=== PATIENT | male | born 1965 | race Caucasian/White ===

== ENCOUNTER 2021-06-16 09:16 | Day surgery (SDC) | payer MEDICARE ==
[~2021-06-16] VITALS: Ht 180.3 cm; Wt 141.3 kg
[2021-06-16] MEDS ORDERED: ROXICODONE 55 MG/TAB PO (10:05)
[2021-06-16] MEDS ORDERED: PRINIVIL20 MG PO (10:05)
[2021-06-16 10:27] VITALS: BP 158/92; PULSE 98; TEMP 98.6
--- NOTE | 2021-06-16 14:45 | NUR ---
Patient was assisted to the bathroom by GAIL Pettit prior to procedure.
[2021-06-16 15:55] VITALS: BP 158/97; PULSE 90; TEMP 97.5
--- NOTE | 2021-06-16 15:55 | NUR ---
Patient arrived on a cart from the endo suite. The patient is drowsy but oriented x3. Verbal report obtained. Vitals obtained. The patient requested a Sprite and warm muffin. His requested the same. Call underwood is on his lap within reach.
[2021-06-16 16:10] VITALS: BP 158/92; PULSE 97
--- NOTE | 2021-06-16 16:10 | NUR ---
Vitals obtained. Patient denies neusea. No vomiting. Call underwood remains on his lap. is present.
[2021-06-16 16:25] VITALS: BP 160/87; PULSE 86
--- NOTE | 2021-06-16 16:25 | NUR ---
Patient expressed desire to be discharged. Vitals obtained.
--- NOTE | 2021-06-16 16:40 | NUR ---
IV was discontinued due to impending discharge. Catheter tip intact. Pressure dressing applied. No swelling or redness noted. Discharge instructions and educational material was reviewed. The patient verbalized understanding of the information and signed the realted paperwork. Soft diet packet was included for the patient, per DR 24 hours. The patient verbalized understanding and can list a few foods that are safe for him to eat. He plans on having pudding, jello, and ice cream without chunks. The patient denied needing assistance changing.
--- NOTE | 2021-06-16 17:00 | NUR ---
The patient was escorted to the patient entrence by GAIL Pettit. The patient's has the DC packet and personal belongings. The patient was transferred into the care of his , who is present to drive. Via wheelchair.
== END 2021-06-16 17:00 | disposition home or self-care (01) ==
LOC: SDCO 09:16
DX: R19.5 Other fecal abnormalities (principal); I85.00 Esophageal varices without bleeding; K74.60 Unspecified cirrhosis of liver; K57.30 Diverticulosis of large intestine without perforation or abscess without bleeding; G89.29 Other chronic pain; D50.0 Iron deficiency anemia secondary to blood loss (chronic); B19.20 Unspecified viral hepatitis C without hepatic coma; I10 Essential (primary) hypertension; R18.8 Other ascites; F17.210 Nicotine dependence, cigarettes, uncomplicated; Z79.891 Long term (current) use of opiate analgesic; Z79.899 Other long term (current) drug therapy
CPT/HCPCS: J2704; J7030

== ENCOUNTER 2021-09-08 09:48 | Day surgery (SDC) | payer MEDICARE ==
[~2021-09-08] VITALS: Ht 180.3 cm; Wt 118.2 kg
[~2021-09-08 09:48] MED LIST: PRINIVIL20 MG PO; ROXICODONE 55 MG/TAB PO
[2021-09-08] MEDS ORDERED: TENORMIN 5050 MG/TAB PO (11:15)
[2021-09-08] MEDS ORDERED: LASIX 40MG TABL40 MG PO (11:16)
[2021-09-08] MEDS ORDERED: PROTONIX 40MG T40 MG PO (11:16)
[2021-09-08] MEDS ORDERED: ALDACTONE 100M100 MG PO (11:17)
[2021-09-08 11:55] LABS: CALCIUM 8.2 mg/dL (8.4-10.2); CREATININE, serum 0.98 mg/dL (0.72-1.25); POTASSIUM 3.8 mmol/L (3.5-4.5)
[2021-09-08 12:20] VITALS: BP 165/88; PULSE 75; TEMP 98
--- NOTE | 2021-09-08 12:20 | NUR ---
Pt arrived from procedure, drowsy but oriented. Pt settled by Jaylene REYNOLDS. Vitals obtained. Warm blanekt provided. Hot black coffee and a cold muffin provided per request. Call underwood is within reach on side table.
[2021-09-08 12:35] VITALS: BP 154/92; PULSE 72
--- NOTE | 2021-09-08 12:35 | NUR ---
Pt has finished his muffin and expressed desire to be discharged. Vitals obtained. Call underwood remains within reach.
[2021-09-08 12:50] VITALS: BP 147/94; PULSE 79
--- NOTE | 2021-09-08 12:50 | NUR ---
Vitals obtained. IV discontinued. No redness or swelling. Catheter tip intact. Pressure bandage applied. DC instructions and educational material reviewed with the pt, who verbalized understanding and signed the related paperwork. Pt denied having questions or concerns. Call underwood remains within reach. Pt denied needing assistance changing.
--- NOTE | 2021-09-08 13:00 | NUR ---
Pt dismissed from endo via wheelchair by Arpita REYNOLDS. Pt has DC packet and personal belongings. Pt transferred into the care of his , who is present to drive.
[2021-09-08 13:22] VITALS: BP 137/95; PULSE 70; TEMP 97.1
== END 2021-09-08 13:00 | disposition home or self-care (01) ==
LOC: SDCO 09:48
PROVIDERS: Internal Medicine Gastroenterology
DX: K74.69 Other cirrhosis of liver (principal); B19.20 Unspecified viral hepatitis C without hepatic coma; I85.00 Esophageal varices without bleeding; F17.210 Nicotine dependence, cigarettes, uncomplicated
CPT/HCPCS: J2704; J7120